=== PATIENT | female | born 1960 | race Caucasian/White ===

== ENCOUNTER 2022-08-27 06:32 | Observation (INO) ==
--- NOTE | 2022-08-12 11:30 | PAT Medication Instructions ---
Medication Instructions Date of Service August 12, 2022 Home Medications Simple Saline 1 dose NA DAILY calcium 600 mg capsule 600 mg PO BID cholecalciferol (vitamin D3) 100 mcg (4,000 unit) capsule 4,000 unit PO QAM elderberry fruit 200 mg capsule 200 mg PO HS zinc 50 mg tablet 50 mg PO HS Saline Ointment 1 dose NA BID PRN dry nares acetaminophen 500 mg tablet 500 mg PO QID PRN Pain ascorbic acid (vitamin C) 500 mg tablet (Vitamin C) 500 mg PO HS atorvastatin 20 mg tablet 20 mg PO QAM cranberry 400 mg capsule 400 mg PO QAM dextromethorphan-guaifenesin 30 mg-600 mg tablet extended hr (Mucinex DM) 1 tab PO Q12H PRN Cough fluticasone 250 mcg-salmeterol 50 mcg/dose blistr powdr for inhalation (Advair Diskus) 1 inh inhalation BID fluticasone propionate 50 mcg/actuation nasal spray,suspension 2 spray intranasal QAM PRN Allergy Symptoms meloxicam 15 mg tablet 15 mg PO HS PRN Pain peg 400-propylene glycol (PF) 0.4 %-0.3 % eye drops in a dropperette (Systane (PF)) 1 drp ophthalmic (eye) BID PRN Dry Eye(S) thyroid (pork) 60 mg tablet (CISO Thyroid) 60 mg PO QAM Continue as directed Simple Saline 1 dose NA DAILY ASK your surgeon for instructions meloxicam 15 mg tablet 15 mg PO HS PRN Pain STOP taking 2 weeks before surgery elderberry fruit 200 mg capsule 200 mg PO HS cranberry 400 mg capsule 400 mg PO QAM DO NOT take the morning of surgery calcium 600 mg capsule 600 mg PO BID cholecalciferol (vitamin D3) 100 mcg (4,000 unit) capsule 4,000 unit PO QAM dextromethorphan-guaifenesin 30 mg-600 mg tablet extended [id number] hr (Mucinex DM) 1 tab PO Q12H PRN Cough (if needed) Take morning of surgery With a small sip of water, OTHERWISE NOTHING TO EAT OR DRINK AFTER MIDNIGHT: Saline Ointment 1 dose NA BID PRN dry nares (if needed) acetaminophen 500 mg tablet 500 mg PO QID PRN Pain (if needed) atorvastatin 20 mg tablet 20 mg PO QAM fluticasone 250 mcg-salmeterol 50 mcg/dose blistr powdr for inhalation (Advair Diskus) 1 inh inhalation BID fluticasone propionate 50 mcg/actuation nasal spray,suspension 2 spray intranasal QAM PRN Allergy Symptoms (if needed) peg 400-propylene glycol (PF) 0.4 %-0.3 % eye drops in a dropperette (Systane (PF)) 1 drp ophthalmic (eye) BID PRN Dry Eye(S) (if needed) thyroid (pork) 60 mg tablet (CISO Thyroid) 60 mg PO QAM Take evening before surgery calcium 600 mg capsule 600 mg PO BID zinc 50 mg tablet 50 mg PO HS Saline Ointment 1 dose NA BID PRN dry nares (if needed) acetaminophen 500 mg tablet 500 mg PO QID PRN Pain (if needed) ascorbic acid (vitamin C) 500 mg tablet (Vitamin C) 500 mg PO HS dextromethorphan-guaifenesin 30 mg-600 mg tablet extended [id number] hr (Mucinex DM) 1 tab PO Q12H PRN Cough (if needed) fluticasone 250 mcg-salmeterol 50 mcg/dose blistr powdr for inhalation (Advair Diskus) 1 inh inhalation BID peg 400-propylene glycol (PF) 0.4 %-0.3 % eye drops in a dropperette (Systane (PF)) 1 drp ophthalmic (eye) BID PRN Dry Eye(S) (if needed) Other Notes If you have any questions please call us at [phone] or [phone] or [phone] or [phone]
--- NOTE | 2022-08-16 15:53 | Anesthesiology Consultation ---
Date of Service August 16, 2022 Assessment & Plan (1) Encounter for pre-operative examination: - pt reports upcoming PCP pre-op evaluation 08/19/22, Dr. Paulson. - neuraxial anesthesia concerns: pt reports significant RLE discomfort following neuraxial anesthesia for during administration, resolved shortly after. - Outpatient joint assessment: Patient is currently scheduled for inpatient pathway. If re-evaluated pending system levels during current pandemic/surgeon requests outpatient pathway, patient is not acceptable candidate for outpatient joint program from anesthesia standpoint pending surgeon's office assessment of pt motivation/support/completion of same day joint program preop requirements. Chart Review Chart Review: Pending: Refer to Additional Notes / Consult section and Patient seen in Pre Admission Testing Teaching & Discussion Pre-Anesthesia Teaching/Discussion Notes: Instructed NPO after midnight before surgery, except medications with 15 cc of water. Medication instructions provided according to the PAT guidelines. History Surgery Operation Date: 08/27/22 07:00 Proposed Procedures p Left Total Knee Arthroplasty - Júnior Brenna Acharya MD Height/Weight Height: 5 ft 8 in Weight: 89.7 kg Allergies Allergy/AdvReac Type Severity Reaction Status Date / Time Iodinated Contrast Media Allergy Intermediate itching Verified 08/09/22 07:42 Sulfa (Sulfonamide Allergy Intermediate itching Verified 08/09/22 07:42 Antibiotics) Medications Home Medications Medication Instructions Recorded Confirmed Last Taken Simple Saline 1 dose NA DAILY 08/08/22 08/09/22 Unknown calcium 600 mg capsule 600 mg PO BID 08/08/22 08/09/22 Unknown cholecalciferol (vitamin D3) 100 4,000 unit PO QAM 08/08/22 08/09/22 Unknown mcg (4,000 unit) capsule elderberry fruit 200 mg capsule 200 mg PO HS 08/08/22 08/09/22 Unknown zinc 50 mg tablet 50 mg PO HS 08/08/22 08/09/22 Unknown Saline Ointment 1 dose NA BID PRN dry nares 08/09/22 08/09/22 Unknown acetaminophen 500 mg tablet 500 mg PO QID PRN Pain 08/09/22 08/09/22 Unknown ascorbic acid (vitamin C) 500 mg 500 mg PO HS 08/09/22 08/09/22 Unknown tablet (Vitamin C) atorvastatin 20 mg tablet 20 mg PO QAM 08/09/22 08/09/22 Unknown cranberry 400 mg capsule 400 mg PO QAM 08/09/22 08/09/22 Unknown dextromethorphan-guaifenesin 30 1 tab PO Q12H PRN Cough 08/09/22 08/09/22 Unknown mg-600 mg tablet extended [id number] hr (Mucinex DM) fluticasone 250 mcg-salmeterol 50 1 inh inhalation BID 08/09/22 08/09/22 Unknown mcg/dose blistr powdr for inhalation (Advair Diskus) fluticasone propionate 50 2 spray intranasal QAM PRN Allergy 08/09/22 08/09/22 Unknown mcg/actuation nasal Symptoms spray,suspension meloxicam 15 mg tablet 15 mg PO HS PRN Pain 08/09/22 08/09/22 Unknown peg 400-propylene glycol (PF) 0.4 1 drp ophthalmic (eye) BID PRN Dry 08/09/22 08/09/22 Unknown %-0.3 % eye drops in a dropperette Eye(S) (Systane (PF)) thyroid (pork) 60 mg tablet (OVERHEAD CRANE TECHNICIAN 60 mg PO QAM 08/09/22 08/09/22 Unknown Thyroid) Past Medical History Medical History Chronic sinusitis stable per pt GERD (gastroesophageal reflux disease) infrequent, controlled, stable per pt History of anxiety Hx of migraines Hypothyroidism Mitral valve prolapse no cards Seasonal allergies Patient denies h/o stroke, seizures, heart attack, heart failure, DM, HTN, blood clots or blood transfusions. Exercise / Class Metabolic Activity III < 4 Walking/Shop/Light housework (occasional SOB with usual activities on flat surfaces, ongoing x several yrs, slight increase over the past year; denies chest discomfort) Past Family History Family History Other No family history of adverse response to anesthesia Past Surgical History Surgical History H/O knee surgery left "loose body" removed History of bilateral tubal ligation History of section x 1 History of colonoscopy History of esophagogastroduodenoscopy (EGD) History of tonsillectomy and adenoidectomy History of tooth extraction Past Anesthesia History No Hx of Anesthesia Complications and No Family Hx of Anesthesia Complications History of PONV No Hx of PONV and Hx of Motion Sickness Social History Smoking Status: Former smoker tobacco type: cigarettes Do You Dip or Chew Tobacco: No Smoking End Date: at 38 Hx Alcohol Use: Yes alcohol intake frequency: holidays/special occasions only Hx Substance Use: No substance use type: does not use Review of Systems Snoring, denies witnessed apneas. Patient denies chest pain, fever, chills, cough, wheezing, or palpitations. Physical Exam Vital Signs Vitals BP 141/89 P 68 TEMP 97.5 SP02 99% on RA RESP 17 Physical Full cervical extension range of motion without pain TMD 3.5 finger breadths Mallampati Score 3 Dentition: several crowns and one missing tooth; denies chipped or loose teeth, caps, implants or bridges Lungs: normal respiratory effort. Good air movement, clear throughout to auscultation, no adventitious breath sounds Cardiac: regular rate and rhythm, no murmurs noted Carotid arteries: negative bruit bilat Lab Results Anesthesia Preop Results Results Anesthesia Widget: WBC 6.72 K/ul (4.8-10.8) 08/16/22 Hgb 13.0 g/dl (12.0-16.0) 08/16/22 Hct 38.8 % (37.0-47.0) 08/16/22 Plt 244 K/uL (130-400) 08/16/22 Na 139 mmol/L (136-145) 08/16/22 K 4.7 mmol/L (3.5-5.1) 08/16/22 Cl 107 mmol/L (98-107) 08/16/22 CO2 28 mmol/L (21-32) 08/16/22 BUN 14 mg/dl (6-23) 08/16/22 Creat 0.69 mg/dl (0.6-1.2) 08/16/22 Glucose Level 88 mg/dl (70-99(Fasting)) 08/16/22 PT 10.5 Seconds (9.0-12.0) 08/16/22 PTT 26.4 Seconds (21.0-31.0) 08/16/22 INR 1.0 (0.9-1.1) 08/16/22 Urine Color Yellow 08/16/22 Urine Appearance Clear (Clear) 08/16/22 Urine pH 7.5 (4.5-7.5) 08/16/22 Urine Specific [place] 1.015 (1.000-1.030) 08/16/22 Urine Protein Negative (Negative) 08/16/22 Urine Glucose (UA) Negative (Negative) 08/16/22 Urine Ketones Negative (Negative) 08/16/22 Urine Blood Negative (Negative) 08/16/22 Urine Nitrite Negative (Negative) 08/16/22 Urine Bilirubin Negative (Negative) 08/16/22 Urine Urobilinogen Negative (Negative) 08/16/22 Urine Leukocyte Esterase Negative (Negative) 08/16/22 Blood Type B Positive 08/16/22 Antibody Screen NEGATIVE 08/16/22 Testing Electrocardiogram Date: 08/16/22 NSR, rate 66 bpm Left axis deviation Prolonged QT COVID-19 Risk Screen Screening Information COVID-19 Screen Date: 08/16/22 Exposure 21 Days Family/Household +COVID Last 21 Days: No Exposure 10 Days Any COVID Exposure Last 10 Days: No Symptoms Last 10 Days Experienced COVID Sx Last 10 Days: No + COVID 0-90 Days COVID + in Last 0-90 Days: No
--- NOTE | 2022-08-19 11:36 | History & Physical Report ---
Date of Service August 19, 2022 Assessment & Plan (1) Osteoarthritis of left knee: Plan: PRE-OP Diagnosis: Left knee osteoarthritis Planned Procedure: Left total knee arthroplasty Plan: Patient is scheduled to undergo this procedure at the [facility] with Dr. Acharya on August 27, 2022. Risks and complications of the procedure such as: Infection, bleeding, pain, scarring, nerve blood vessel damage, weakness, wound problems, stiffness, incomplete relief of symptoms, hardware failure, hardware loosening, wear, fracture, tendon or ligament injury, blood clots, embolism, cardiac, stroke and were explained to the patient at her visit Dr. Acharya on July 02 and informed consent for the procedure was obtained. Patient also understands risks of proceeding with surgical intervention during the COVID-19 pandemic. Currently she is asymptomatic and states that she has not been in contact with anyone positive for the virus recently. We will need to obtain preoperative medical clearance from the patient's primary care provider Dr. Gonzalez. She has an appointment scheduled for August 19 at [facility] in the afternoon. Patient is scheduled to meet with anesthesia at the hospital later this afternoon. While there she will obtain a CBC with differential, complete metabolic panel, PT/INR, PTT, blood type and screen, urinalysis, urine culture and sensitivity, EKG. During today's visit we reviewed the total knee packet. I provided the patient with paperwork to obtain obtaining a handicap placard for her vehicle. I provided her with information about lectures offered by [facility] in regards to joint replacement surgery. I provided her with an order to obtain a walker. I recommended that she purchase a shower chair and raised toilet seat. We discussed discharge planning from the hospital. Patient states she will most likely do in-home physical therapy for the first 2 weeks before transitioning to outpatient physical therapy. I advised the patient that she will be provided with a prescription for narcotic pain medication for postoperative pain control. We will have her on aspirin twice daily for the first 30 days postoperatively for blood clot prevention. Patient verbalized understanding of all information provided during today's visit. She thanks for the care that she received. If she has questions or concerns prior to her surgery, she will contact clinic. Patient be scheduled for 2-week postoperative follow-up visit with Areli Patel on September 11. This chart was completed utilizing [employer] voice recognition software. Grammatical errors, random word insertions, pronoun errors, and in complete sentences are an occasional consequence of the system. Any questions or concerns about the content, text, or information contained within the body of this dictation should be addressed directly to the physician for clarification. History of Present Illness Chief Complaint: Chief Complaint: Left knee pain Primary Care Provider: Emi Gonzalez MD History of Present Illness (including history relevant to procedure): This 62-year-old female presents to clinic today for her preoperative history and physical. Patient states that her knee pain first began in 1989 when she sustained a twisting injury to her left knee. She noted an exacerbation of her pain in 2016 and underwent an arthroscopy and loose body removal. In 2020 she fell down some steps at home noted increase in her left knee pain. She tried conservative measures including formal physical therapy with mild relief. She states the pain is located primarily in the posterior aspect of her knee. She states that going up and down stairs does not make her pain any worse. Denies any numbness or tingling to her left lower extremity. She had undergone ultrasound November 06, 2021, but the cyst was too small to be aspirated and injected. She has some days that are better than others and today is a good day. She has been going to PT. She is not sure that the cortisone injection given last visit was too helpful. She has not had good results from PABLO injections in the past. She rates her pain a 2/10. She is also starting to note some discomfort in her right knee. Review Of Systems: A 12 point review of systems is performed and is unremarkable except for those things stated in the HPI and past medical history. Past Medical History: Problems: Left knee pain Hypercholesterolemia Asthma Chronic cough Anxiety Hypothyroidism GERD Hiatal hernia Obesity Procedure History Procedure Procedure Date Comments section Cecil tooth - impacted Tonsils and adenoids History of knee surgery Tubal ligation Dental surgery - left Allergies and Sensitivities: contrast media (iodine-based)(itch) sulfa drugs(Itch) Current Home Meds: (Last Updated 08/16 14:43) ascorbic acid/chondroitin/glucosa/cuauhtemoc (Glucosamine Chondroitin) atorvastatin (atorvastatin 20 mg oral tablet) 20 mg PO Daily calcium carbonate (calcium (as carbonate) 600 mg oral tablet) cholecalciferol (Vitamin D3) PO Daily chondroitin/glucosamine/methylsulfonylmethane (Glucosamine Chondroitin Advanced) cranberry PO elderberry gummy fluticasone nasal (fluticasone 50 mcg/inh nasal spray) 1 spray each nostril bid fluticasone-salmeterol (fluticasone-salmeterol Diskus 250 mcg-50 mcg) 1 puff inhaled bid meclizine PO Daily at night meloxicam (meloxicam 15 mg oral tablet) 15 mg PO Daily knee pain sertraline 25 mg PO Daily thyroid desiccated ([place] Thyroid) 60 mg PO Daily unknown medication inhaler bid zinc sulfate (Zinc) PO Daily Initial Wt: 08/16 92.0 kg 202 lb Allergies Allergy/AdvReac Type Severity Reaction Status Date / Time Iodinated Contrast Media Allergy Intermediate itching Verified 08/09/22 07:42 Sulfa (Sulfonamide Allergy Intermediate itching Verified 08/09/22 07:42 Antibiotics) Home Medications Medication Instructions Recorded Confirmed Type Simple Saline 1 dose NA DAILY 08/08/22 08/09/22 History calcium 600 mg capsule 600 mg PO BID 08/08/22 08/09/22 History cholecalciferol (vitamin D3) 100 4,000 unit PO QAM 08/08/22 08/09/22 History mcg (4,000 unit) capsule elderberry fruit 200 mg capsule 200 mg PO HS 08/08/22 08/09/22 History zinc 50 mg tablet 50 mg PO HS 08/08/22 08/09/22 History Saline Ointment 1 dose NA BID PRN dry nares 08/09/22 08/09/22 History acetaminophen 500 mg tablet 500 mg PO QID PRN Pain 08/09/22 08/09/22 History ascorbic acid (vitamin C) 500 mg 500 mg PO HS 08/09/22 08/09/22 History tablet (Vitamin C) atorvastatin 20 mg tablet 20 mg PO QAM 08/09/22 08/09/22 History cranberry 400 mg capsule 400 mg PO QAM 08/09/22 08/09/22 History dextromethorphan-guaifenesin 30 1 tab PO Q12H PRN Cough 08/09/22 08/09/22 History mg-600 mg tablet extended [id number] hr (Mucinex DM) fluticasone 250 mcg-salmeterol 50 1 inh inhalation BID 08/09/22 08/09/22 History mcg/dose blistr powdr for inhalation (Advair Diskus) fluticasone propionate 50 2 spray intranasal QAM PRN Allergy 08/09/22 08/09/22 History mcg/actuation nasal Symptoms spray,suspension meloxicam 15 mg tablet 15 mg PO HS PRN Pain 08/09/22 08/09/22 History peg 400-propylene glycol (PF) 0.4 1 drp ophthalmic (eye) BID PRN Dry 08/09/22 08/09/22 History %-0.3 % eye drops in a dropperette Eye(S) (Systane (PF)) thyroid (pork) 60 mg tablet (TRIMMING OPERATOR 60 mg PO QAM 08/09/22 08/09/22 History Thyroid) Past Med/Surg History Medical History Chronic sinusitis stable per pt GERD (gastroesophageal reflux disease) infrequent, controlled, stable per pt History of anxiety Hx of migraines Hypothyroidism Mitral valve prolapse no cards Seasonal allergies Surgical History H/O knee surgery left "loose body" removed History of bilateral tubal ligation History of section x 1 History of colonoscopy History of esophagogastroduodenoscopy (EGD) History of tonsillectomy and adenoidectomy History of tooth extraction Family History Other No family history of adverse response to anesthesia Social History Smoking Status: Former smoker Second Hand Exposure: Yes (in the past); Do You Dip or Chew Tobacco: No; Hx Alcohol Use: Yes Hx Substance Use: No Preferred Language: Setswana Transfer Clerk Required: No Beliefs That Will Affect Care: None Current Living Situation: Alone Feels Safe at Home: Yes Assistive Devices: Contacts and Glasses Review of Systems All systems reviewed & are unremarkable except as noted in Subjective Physical Exam Physical Exam: Physical Exam: (relevant to the procedure, including heart and lung evaluation) General: Alert and oriented x3 with proper grooming and hygiene Eyes: Pupils are equal and reactive to light with accommodation. Extraocular movements are intact Throat: Posterior oropharynx is clear with absence of edema, erythema or exudate. Dentition is appropriate. Cardiac: Regular rate and rhythm no murmurs or gallops appreciated Lungs: Clear to auscultation throughout with no wheezing, rales or rhonchi Abdomen: Obese, nondistended, nontender with NABS Extremities: 2+ DP pulse Sensation to light touch is intact Motor to the gastroc soleus, tibialis anterior, and EHL is 5/5. Able to perform straight leg raise. Valgus alignment + Lateral joint line tenderness. - Britta's Ligamentous examination exhibits: Stable Bean 0 mm anterior translation and firm endpoint Posterior drawer stable Varus valgus stress at 0 and 30 stable Valgus stress at 0 and 30 stable - Effusion Range of motion 0-125 + Tenderness to palpation lateral femoral condyle, Latera patellar facet Palpable Shepard's cyst Neuro: Cranial nerves II through XII are intact with no motor or sensory deficit Skin: Normal in appearance with no open skin areas or discharge Results & Data Diagnostic Findings Studies (relevant to the procedure): RADIOGRAPHY: x-rays showed medial joint space narrowing bilaterally and most significantly patellofemoral compartment. There are marginal osteophytes. 5 degrees valgus alignment on the left.
[~2022-08-27 06:32] MED LIST: ACETAMINOPHEN 500 MG TAB PO SCH; BUPIVACAINE 0.5 % 5 MG/1 ML PF 10ML VIAL ONE; EPINEPHrine INJ 1 MG/ML AMP ONE; FAMOTIDINE 20 MG TAB PO SCH; LR 500ML BOLUS, THEN 15ML/HR IV SCH; LR 60ML/HR IV SCH; ROPIVACAINE 0.5% 5 MG/ML 30 ML VIAL ONE; ROPIVACAINE 0.5% HCL/PF 150 MG, BUPIVACAINE 0.75% MPF 20 ML, EPINEPHrine 0.15 MG, Ketor... INFIL SCH; Scopolamine 1 MG TDSY TD SCH; TRANEXAMIC ACID 1,000 MG **IV Intra-op IV SCH; TRANEXAMIC ACID 1,000 MG **IV Pre-op IV SCH; ceFAZolin 2000MG 2,000 MG/15 ML SYR IV SCH; oxyCODONE HCL 10 MG TABCR (OxyCONTIN) PO SCH
[2022-08-27] MEDS ORDERED: MIDAZOLAM HCL 1 MG/ML 2ML VIAL ONE (08:03)
[2022-08-27] MEDS ORDERED: PROPOFOL IV EMULSION 10 MG/ML 20 ML VIAL IV ONE (08:04)
--- NOTE | 2022-08-27 08:33 | History & Physical Bridge Note ---
Date of Service August 27, 2022 History & Physical Bridge Note I have examined the patient, reviewed the History & Physical and in the interval since the performance of the History & Physical I have noted the following changes of clinical significance: no changes noted Patient is aware of the risks, is asymptomatic, and tested negative for COVID- 19.
[2022-08-27] MEDS ORDERED: fentaNYL citrate PF 100 MCG/2 ML VIAL ONE (08:45)
[2022-08-27] MEDS ORDERED: ORTHO JOINT ANESTHETIC ONE (09:32)
[2022-08-27] MEDS ORDERED: PHENYLEPHRINE HCL 10 MG/ML VIAL ONE (10:00)
[2022-08-27] MEDS ORDERED: HYDROmorphone INJ 2 MG/ML SYR/VIAL ONE (10:06)
--- NOTE | 2022-08-27 11:42 | Post Operative Brief Note ---
Immediate Post Op Note v1 Date of Surgery August 27, 2022 Pre & Post Diagnosis Operation Date: 08/27/22 09:20 Pre-Op Diagnosis: Osteoarthritis of left knee Post-Op Diagnosis: Osteoarthritis of left knee I identified the patient and participated in the time-out.: Yes Procedure Operation Date: 08/27/22 09:20 Actual Procedures p Left Total Knee Arthroplasty(Left) - Júnior Acharya MD Surgeon Júnior Acharya MD Resident Care Aide Gideon Ashby DO & M NOEMI PatelC Estimated Blood Loss 35 Findings Consistent with Post-Op Diagnosis Fluids 1100 cc Specimens Left knee contents Anesthesia Type General Regional Complications none
--- NOTE | 2022-08-27 11:43 | Operative Report ---
Post Operative Report Pre & Post Diagnosis Operation Date: 08/27/22 09:20 Pre-Op Diagnosis: Osteoarthritis of left knee Post-Op Diagnosis: Osteoarthritis of left knee I identified the patient and participated in the time-out.: Yes Procedure Operation Date: 08/27/22 09:20 Actual Procedures p Left Total knee replacement, imageless computer assisted navigation - Júnior Acharya MD Surgeon Júnior Acharya MD Film Mounter Gideon Ashby DO & M BONI Patel Estimated Blood Loss 35 Findings See Below Examined Under Anesthesia: ROM -- There was 5 degrees to 135 degrees of flexion Ligamentous examination -- revealed stable Bean, posterior drawer, varus and valgus stress at 0 and 30 degrees. [place] Grade IV changes of patellofemoral and lateral compartment, grade II-III medial compartment. Fluids 1100 cc Specimens Left knee contents Anesthesia Type General Regional Complications none Indications This is a 62-year-old female who has clinical and radiographic findings consistent with osteoarthritis of the a left knee. I recommended that a left total knee replacement be performed. The patient understands the risks of surgery, which include but not limited to: bleeding, infection, re-operation, damage to nerves and arteries, continued knee pain, knee stiffness, DVT, and . The patient understands all of these instructions and explanations, all of his questions have been satisfactorily addressed and the patient has elected to proceed. Informed consent was signed. Description of Procedure IMPLANTS: 1. Femur: Triathlon #4 Left PS. 2. Tibia: Triathlon #4 [place] with 12 x 50 mm stem. 3. Insert: Triathlon #4 x 9 mm PS X3 poly. 4. Patella: Triathlon A29 x 9 mm X3 poly. 5. Palacos cement. Procedure: The patient was taken to the Operating Room and placed in the supine position after general and adductor canal nerve block was administered. My initials and a multidisciplinary time-out were used to identify the left leg as the correct operative limb. A tourniquet was placed high in the thigh. Prior to the incision, 2 grams of intravenous Ancef were given. The left leg was then prepped and draped in a standard sterile fashion. An Esmarch was used to exsanguinate the leg and the tourniquet was inflated to 250 mmHg. The planned mid-line 20 cm incision was created exposing the extensor mechanism. The medial parapatellar arthrotomy was made and the patella was everted. The patella was addressed first. It was prepared by reaming from 19 mm down to 10 mm. An A29 button was found to fit best. The peg holes were made in the standard fashion. The femur was addressed next and using computer assisted OrthoAlign with 3 degrees of flexion and 0 degrees of valgus, removing 10 mm in the standard fashion for the distal cut. The cut was made and the 4-in-1 cutting block for a size 4 femur was placed. These cuts and the cuts to place the box were made in the standard fashion. Our attention was then drawn to the tibia cut with using imageless computer assisted OrthoAlign, taking 2 mm from the lateral low side. There was sufficient extension and flexion gap to fit a 9 mm spacer. A #4 Tibial baseplate fit well. A trial with a 9 mm spacer showed excellent stability in both flexion and extension, with good ligament balance, and thumbs free patellar tracking. Range of motion of 0-135 degrees. The tibial baseplate was prepped for the keel and stem. A stem was used due to some areas of soft bone, to avoid subsidence. All components were removed. All surfaces were copiously irrigated prior to placement of the components. The femoral component followed by Tibial baseplate were cemented in place and the 9 mm X3 poly was placed. Next, the patellar button was placed using the same cement. 90 ml of total knee cocktail were injected into the soft tissues and periosteum.Once the cement had cured, the range of motion and stability were unchanged.The tourniquet was deflated. Hemostasis was obtained. The extensor mechanism was closed with 1-0 Vicryl and 0 Stratafix with the knee bent approximately 60 degrees in a standard fashion. The peritenon and deep fascia was closed with 2-0 Vicryl. The subcutaneous layer was closed with 3-0 Vicryl. The skin was closed with Zipline and shield. The limb was cleaned and dried. 4x4 dressing was placed over top followed by ABDs, sterile Webril, and a foot to thigh Ghanshyam bandage. The patient was then transferred to the Recovery Room in stable condition. The sponge and needle counts were correct. POST-OP INSTRUCTIONS: The patient will be WBAT. The patient will be admitted to the hospital. Labs will be obtained during the stay. DVT prophylaxis will included aspirin for 6 weeks, TEDs, and mechanical foot pumps. The dressing will be changed prior to their discharge or postop day #2 and covered with a Silverlon dressing, whichever comes first as long as the incision as dry. I attest to the content of the Intraoperative Record and any orders documented therein. Any exceptions are noted below.
[2022-08-27] MEDS ORDERED: DEXAMETHASONE SOD INJ 4 MG/ML VIAL ONE (12:09)
[2022-08-27] MEDS ORDERED: ONDANSETRON INJ 2 MG/ML 2 ML VIAL ONE (12:09)
--- NOTE | 2022-08-27 12:15 | Operative Report ---
Post Operative Report Pre & Post Diagnosis Operation Date: 08/27/22 09:20 Pre-Op Diagnosis: Osteoarthritis of left knee Post-Op Diagnosis: Osteoarthritis of left knee I identified the patient and participated in the time-out.: Yes Procedure Operation Date: 08/27/22 09:20 Actual Procedures p Left Total Knee Arthroplasty(Left) - Júnior Acharya MD Surgeon Dr Júnior Acharya Senior Games Technician Gideon Ashby DO & M RIMA Patel-C Estimated Blood Loss 35 Findings Consistent with Post-Op Diagnosis Specimens none Description of Procedure Pt was taken to operating room, given spinal anesthesia with sedation. Pt was given 2g Ancef IV. Prepped and draped in sterile fashion. I was present during the entire case and assisted with positioning, instrumentation, closure and dressings. Please see Dr. Acharya's op report for further detail. Pt was awake and transferred to PACU in stable condition I attest to the content of the Intraoperative Record and any orders documented therein. Any exceptions are noted below.
[2022-08-27] MEDS ORDERED: PROMETHAZINE HCL 12.5 MG in SODIUM CHLORIDE 0.9% 50 ML IV PRN (12:29)
[2022-08-27] MEDS ORDERED: FLUMAZENIL 0.1 MG/1 ML 10 ML VIAL IV PRN (12:29)
[2022-08-27] MEDS ORDERED: ONDANSETRON INJ 2 MG/ML 2 ML VIAL IV PRN ×2 (12:29→13:45)
[2022-08-27] MEDS ORDERED: ATROPINE SULFATE 0.1 MG/ML 10ML SYR IV PRN (12:29)
[2022-08-27] MEDS ORDERED: NALOXONE HCL 0.4 MG/1 ML VIAL/CARP IV PRN ×2 (12:29→13:45)
[2022-08-27] MEDS ORDERED: ePHEDrine sulfate 50 MG/ML AMP IV PRN (12:29)
[2022-08-27] MEDS ORDERED: LABETALOL HCL IV 5 MG/ML 20ML IV PRN (12:29)
[2022-08-27] MEDS ORDERED: HYDROmorphone INJ 1 MG/ML SYRINGE ONE (12:33)
[2022-08-27] MEDS: HYDROmorphone INJ 1 MG/ML SYRINGE IV PRN ×4 (12:35→12:50)
--- NOTE | 2022-08-27 12:39 | XRay Report ---
TWO VIEWS LEFT KNEE CLINICAL HISTORY: Postoperative examination. FINDINGS: AP and crosstable lateral portable views of the left knee are compared to study dated 2021. A left knee arthroplasty is in near anatomic alignment. There has been undersurface remodeling of the patella. No acute fracture is seen. Soft tissue edema and subcutaneous gas around the knee are expected postoperative changes. 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 IMPRESSION: 1. Expected postoperative findings status post left knee arthroplasty. No acute fracture is seen. 2. 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 ACT 112: Negative or not required by law. Electronically signed by: Kalyan Alves M.D. 08/27/2022 12:38 PM
--- NOTE | 2022-08-27 13:20 | Anesthesiology Progress Note ---
Date of Service August 27, 2022 Anesthesia Post Procedure Vital Signs Vital Signs: Temp Pulse Pulse Resp BP Pulse Ox O2 Del Method 08/27/22 13:15 36.4 C L 68 13 132/77 99 Nasal Cannula 08/27/22 13:05 78 13 123/94 99 Nasal Cannula 08/27/22 12:55 70 12 142/91 H 94 Nasal Cannula 08/27/22 12:45 88 13 154/88 H 95 Nasal Cannula 08/27/22 12:35 85 12 170/98 H 97 Room Air 08/27/22 12:25 85 12 166/96 H 97 Room Air 08/27/22 12:15 95 H 16 160/98 H 96 Oxymask 08/27/22 12:05 71 16 166/93 H 97 Oxymask 08/27/22 12:03 36.4 C L 77 16 164/98 H 98 Oxymask 08/27/22 07:23 36.9 C 73 18 139/88 98 Room Air O2 Flow Rate 08/27/22 13:15 3 08/27/22 13:05 2 08/27/22 12:55 2 08/27/22 12:45 2 08/27/22 12:35 08/27/22 12:25 08/27/22 12:15 6 08/27/22 12:05 11 08/27/22 12:03 11 08/27/22 07:23 Pain Intensity Left Knee: Pain Intensity: 4 Transfer of Care Handoff Completed per policy Notes Mental Status: alert / awake / arousable Patient Amnestic to Procedure: Yes Nausea / Vomiting: adequately controlled Pain: adequately controlled Airway Patency, RR, SpO2: stable & adequate BP & HR: stable & adequate Hydration State: stable & adequate Anesthetic Complications: no major complications apparent
[2022-08-27] MEDS ORDERED: bisacodyL 10 MG SUPP PR PRN (13:45)
[2022-08-27] MEDS ORDERED: METOCLOPRAMIDE HCL INJ 5 MG/ML 2 ML VIAL IV PRN (13:45)
[2022-08-27] MEDS ORDERED: MAGNESIUM HYDROXIDE SUSP 30 ML UDC PO PRN (13:45)
[2022-08-27] MEDS ORDERED: HYDROmorphone INJ 0.5 MG/0.5 ML SYR IV PRN (13:45)
[2022-08-27] MEDS: ACETAMINOPHEN 500 MG TAB PO SCH ×2 (14:03→21:37)
[2022-08-27] MEDS: oxyCODONE HCL IR 5 MG TAB (IMMEDIATE RELEASE) PO PRN ×2 (14:04→22:55)
[2022-08-27] MEDS: SODIUM CHLORIDE 0.9% 1000ML 1,000 ML IV SCH (14:04)
[2022-08-27] MEDS: Scopolamine CHECK PATCH PLACEMENT SCH (15:13)
--- NOTE | 2022-08-27 16:16 | Orthopedic Progress Note ---
Date of Service August 27, 2022 Assessment & Plan (1) Osteoarthritis of left knee: Plan: POD #0 s/p Left TKA, doing as well as expected. Resume diet. WBAT with walker. OOB to chair. Continue pain control. Check labs tomorrow. DVT prophylaxis: TEDs 3 weeks, foot pumps while in hospital, ASA 81 mg BID for 6 weeks. PT/OT. D/C planning. Present on Admission?: Yes Admission and Anticipated Discharge Date Admission Date: August 27, 2022 Subjective Doing ok. Physical Exam Physical Exam: LLE: BCR < 2 sec. Sensation to light touch intact distally. Wiggling ankle and all toes. Calf soft and non-tender. Dressing is clean, dry, intact. Able to preform straight leg raise. Results & Data Vital Signs (Past 12 Hours) Vital Signs Temp Pulse Pulse Resp BP Pulse Ox O2 Del Method 08/27/22 15:40 36.7 C 83 16 112/73 94 Nasal Cannula 08/27/22 14:10 Nasal Cannula 08/27/22 14:10 36.3 C L 86 16 150/98 H 97 Nasal Cannula 08/27/22 14:40 36.5 C 67 16 129/80 Nasal Cannula 08/27/22 13:25 66 12 134/84 96 Nasal Cannula 08/27/22 13:15 36.4 C L 68 13 132/77 99 Nasal Cannula 08/27/22 13:05 78 13 123/94 99 Nasal Cannula 08/27/22 12:55 70 12 142/91 H 94 Nasal Cannula 08/27/22 12:45 88 13 154/88 H 95 Nasal Cannula 08/27/22 12:35 85 12 170/98 H 97 Room Air 08/27/22 12:25 85 12 166/96 H 97 Room Air 08/27/22 12:15 95 H 16 160/98 H 96 Oxymask 08/27/22 12:05 71 16 166/93 H 97 Oxymask 08/27/22 12:03 36.4 C L 77 16 164/98 H 98 Oxymask 08/27/22 07:23 36.9 C 73 18 139/88 98 Room Air O2 Flow Rate 08/27/22 15:40 1 08/27/22 14:10 2 08/27/22 14:10 2 08/27/22 14:40 2 08/27/22 13:25 3 06/20/23 13:15 3 08/27/22 13:05 2 08/27/22 12:55 2 08/27/22 12:45 2 08/27/22 12:35 08/27/22 12:25 08/27/22 12:15 6 08/27/22 12:05 11 08/27/22 12:03 11 08/27/22 07:23 Diagnostic Findings Laboratory Results SARS-CoV-2, RNA, NAAT NEGATIVE (NEGATIVE) 08/27/22 06:53 Impressions Knee X-Ray 08/27/22 12:14 TWO VIEWS LEFT KNEE CLINICAL HISTORY: Postoperative examination. FINDINGS: AP and crosstable lateral portable views of the left knee are compared to study dated 11/01/2021. A left knee arthroplasty is in near anatomic alignment. There has been undersurface remodeling of the patella. No acute fracture is seen. Soft tissue edema and subcutaneous gas around the knee are expected postoperative changes. 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 IMPRESSION: 1. Expected postoperative findings status post left knee arthroplasty. No acute fracture is seen. 2. 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 ACT 112: Negative or not required by law. Electronically signed by: Kalyan Alves M.D. 08/27/2022 12:38 PM
[2022-08-27] MEDS: FERROUS GLUCONATE 324 MG TAB PO SCH (16:37)
[2022-08-27] MEDS: ASCORBIC ACID 500 MG TAB PO SCH (16:37)
[2022-08-27] MEDS: ceFAZolin 2000MG 2,000 MG/15 ML SYR IV SCH (17:33)
[2022-08-27] MEDS ORDERED: SENNA 8.6 MG TAB PO SCH (21:00)
[2022-08-27] MEDS: DOCUSATE SODIUM 100 MG CAP PO SCH (21:37)
[2022-08-28] MEDS: SODIUM CHLORIDE 0.9% 1000ML 1,000 ML IV SCH (00:24)
[2022-08-28] MEDS: Scopolamine CHECK PATCH PLACEMENT SCH ×2 (00:24→08:47)
[2022-08-28] MEDS: ceFAZolin 2000MG 2,000 MG/15 ML SYR IV SCH (02:17)
[2022-08-28] MEDS: oxyCODONE HCL IR 5 MG TAB (IMMEDIATE RELEASE) PO PRN ×2 (04:22→08:44)
[2022-08-28] MEDS: ACETAMINOPHEN 500 MG TAB PO SCH ×2 (05:59→13:10)
[2022-08-28 06:34] LABS: Hematocrit (blood only) 33.9 % (37.0-47.0); Hemoglobin 11.4 g/dl (12.0-16.0); Mean Corpuscular Hemoglobin 31.1 pg (25.0-34.0); Mean Corpuscular Hgb Conc 33.6 g/dL (32.0-36.0); Mean Corpuscular Volume 92.6 fL (80.0-100.0); Mean Platelet Volume 9.6 fL (9.4-12.4); Platelet Count 228 K/uL (130-400); RDW Coefficient of Variation 13.1 % (11.5-14.5); Red Blood Count 3.66 M/uL (4.20-5.40); White Blood Count 13.78 K/ul (4.8-10.8)
[2022-08-28 07:07] LABS: BUN Creatinine Ratio 18.1 (10-20); Calcium 9.1 mg/dl (8.6-10.3); Creatinine Clr Calc Pharmacy 90.2 ml/min; Est GFR (African American) 102.6 ml/min; Est GFR (Non-African American) 88.5 ml/min; Potassium 4.4 mmol/L (3.5-5.1)
[2022-08-28] MEDS: FERROUS GLUCONATE 324 MG TAB PO SCH (08:43)
[2022-08-28] MEDS: DOCUSATE SODIUM 100 MG CAP PO SCH (08:43)
[2022-08-28] MEDS: ASCORBIC ACID 500 MG TAB PO SCH (08:43)
[2022-08-28] MEDS ORDERED: ARMOUR THYROID 30 MG TAB PO SCH (09:00)
[2022-08-28] MEDS ORDERED: ATORVASTATIN 20 MG TAB PO SCH (09:00)
[2022-08-28] MEDS ORDERED: ASPIRIN 81 MG ECTAB PO SCH (09:00)
[2022-08-28] MEDS ORDERED: MULTIVITAMIN TAB PO SCH (09:00)
--- NOTE | 2022-08-28 09:16 | Orthopedic Progress Note ---
Date of Service August 28, 2022 Assessment & Plan (1) Osteoarthritis of left knee: Plan: POD #1 s/p Left TKA, doing as well as expected. Continue diet. WBAT with walker. OOB to chair. Continue pain control with oxycodone and Tylenol. H/H stable -on iron and vitamin C. DVT prophylaxis: TEDs 3 weeks, foot pumps while in hospital, ASA 81 mg BID for 6 weeks. Continue PT/OT. D/C planning. Plans for discharge to her home with and home health. We will discharge her today if safe and PT. Admission and Anticipated Discharge Date Admission Date: August 27, 2022 Subjective Patient is sitting up in her chair. Doing well. No issues with nausea or vomiting. She has been out of bed with physical therapy and is currently dressed. She does feel ready to go home. Her daughter is going to be with her. Pain is 8 out of 10 although controlled with oxycodone. Physical Exam Musculoskeletal: Incision is clean, dry and intact. Scant bloody drainage on the postoperative dressings. The incision was cleansed with sterile saline. Zip line is in place. No significant effusion of her left knee. No edema of her left lower extremity. Distal pulses are 1+. Sensation is normal. Strength of her left ankle with plantarflexion, dorsiflexion, inversion and eversion is 5/5. She is able to independently straight leg raise. No significant ecchymosis. No fracture blisters. Results & Data Vital Signs (Past 12 Hours) Vital Signs Temp Pulse Resp BP Pulse Ox O2 Del Method 08/28/22 07:20 Room Air 08/28/22 06:09 36.6 C 78 18 113/70 95 Room Air 08/28/22 04:00 36.5 C 79 16 123/74 96 Room Air 08/27/22 23:51 37.0 C 94 H 18 120/72 96 Room Air Laboratory Results 08/28/22 08/28/22 Range/Units 06:01 06:01 WBC 13.78 H (4.8-10.8) K/ul RBC 3.66 L (4.20-5.40) M/uL Hgb 11.4 L (12.0-16.0) g/dl Hct 33.9 L (37.0-47.0) % MCV 92.6 (80.0-100.0) fL MCH 31.1 (25.0-34.0) pg MCHC 33.6 (32.0-36.0) g/dL RDW Std Deviation 45.0 (36.4-46.3) fL RDW Coeff of Karyna 13.1 (11.5-14.5) % Plt Count 228 (130-400) K/uL MPV 9.6 (9.4-12.4) fL Sodium 136 (136-145) mmol/L Potassium 4.4 (3.5-5.1) mmol/L Chloride 106 (98-107) mmol/L Carbon Dioxide 24 (21-32) mmol/L Anion Gap 6 (3-11) BUN 13 (6-23) mg/dl Creatinine 0.72 (0.6-1.2) mg/dl Est Cr Clr Drug Dosing 90.2 ml/min Est GFR ( Amer) 102.6 ml/min Est GFR (Non-Af Amer) 88.5 ml/min BUN/Creatinine Ratio 18.1 (10-20) Glucose 112 H (70-99(Fasting)) mg/dl Calcium 9.1 (8.6-10.3) mg/dl Diagnostic Findings TWO VIEWS LEFT KNEE CLINICAL HISTORY: Postoperative examination. FINDINGS: AP and crosstable lateral portable views of the left knee are compared to study dated 11/01/2021. A left knee arthroplasty is in near anatomic alignment. There has been undersurface remodeling of the patella. No acute fracture is seen. Soft tissue edema and subcutaneous gas around the knee are expected postoperative changes. 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 IMPRESSION: 1. Expected postoperative findings status post left knee arthroplasty. No acute fracture is seen. 2. 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
--- NOTE | 2022-08-28 09:44 | Discharge Summary ---
Date of Service August 28, 2022 Admission HPI Per Admitting Provider History of Present Illness (including history relevant to procedure): This 62-year-old female presents to clinic today for her preoperative history and physical. Patient states that her knee pain first began in 1989 when she sustained a twisting injury to her left knee. She noted an exacerbation of her pain in 2016 and underwent an arthroscopy and loose body removal. In 2020 she fell down some steps at home noted increase in her left knee pain. She tried conservative measures including formal physical therapy with mild relief. She states the pain is located primarily in the posterior aspect of her knee. She states that going up and down stairs does not make her pain any worse. Denies any numbness or tingling to her left lower extremity. She had undergone ultrasound November 06, 2021, but the cyst was too small to be aspirated and injected. She has some days that are better than others and today is a good day. She has been going to PT. She is not sure that the cortisone injection given last visit was too helpful. She has not had good results from PABLO injections in the past. She rates her pain a 2/10. She is also starting to note some discomfort in her right knee. Review Of Systems: A 12 point review of systems is performed and is unremarkable except for those things stated in the HPI and past medical history. Past Medical History: Problems: Left knee pain Hypercholesterolemia Asthma Chronic cough Anxiety Hypothyroidism GERD Hiatal hernia Obesity Procedure History Procedure Procedure Date Comments section [place] tooth - impacted Tonsils and adenoids History of knee surgery Tubal ligation Dental surgery - left Allergies and Sensitivities: contrast media (iodine-based)(itch) sulfa drugs(Itch) Current Home Meds: (Last Updated 08/16 14:43) ascorbic acid/chondroitin/glucosa/cuauhtemoc (Glucosamine Chondroitin) atorvastatin (atorvastatin 20 mg oral tablet) 20 mg PO Daily calcium carbonate (calcium (as carbonate) 600 mg oral tablet) cholecalciferol (Vitamin D3) PO Daily chondroitin/glucosamine/methylsulfonylmethane (Glucosamine Chondroitin Advanced) cranberry PO elderberry gummy fluticasone nasal (fluticasone 50 mcg/inh nasal spray) 1 spray each nostril bid fluticasone-salmeterol (fluticasone-salmeterol Diskus 250 mcg-50 mcg) 1 puff inhaled bid meclizine PO Daily at night meloxicam (meloxicam 15 mg oral tablet) 15 mg PO Daily knee pain sertraline 25 mg PO Daily thyroid desiccated ([place] Thyroid) 60 mg PO Daily unknown medication inhaler bid zinc sulfate (Zinc) PO Daily Initial Wt: 08/16 92.0 kg 202 lb Discharge Data Consultations 08/22/22 12:35 Consult Hospitalist Routine Procedures Performed Operation Date: 08/27/22 09:20 Actual Procedures p Left Total Knee Arthroplasty(Left) - Júnior Acharya MD Hospital Course (1) Osteoarthritis of left knee: Patient was kept in observation at [facility] after undergoing an elective left total knee arthroplasty by Dr. Acharya on August 27, 2022. Her surgery was performed with spinal anesthetic and a peripheral nerve block. She tolerated the procedure well without any intraoperative complications. She was given 2 g of IV Ancef for surgical prophylaxis which was continued for 24 hours postoperatively. In the recovery room she had x-rays of her left knee which showed a stable left knee arthroplasty. She was allowed out of bed, weight-bear as tolerated with the assistance of a walker. She was given iron and vitamin C to aid in healing. She was given aspirin 81 mg twice daily for DVT prophylaxis which will be continued for 3 weeks postoperatively. ZION stockings were also ordered as well as AV impulse boots. Physical therapy and Occupational Therapy consults were placed. She was seen on postoperative day 1 and was deemed safe for discharge to home. Case management was involved for disposition needs. She plans on returning home with home health and home physical therapy. Postoperative day 1 her dressings were changed and a Silverlon dressing was applied to her left knee. [place] stocking was also applied to her left lower extremity. Her pain was well controlled with oral Tylenol and oxycodone. Her vital signs remained stable. Her postoperative lab work showed a stable H&H and BMP. Due to her doing well out of bed and safe and PT and OT she was discharged to her home in stable condition on August 28, 2022 with her daughter.
[2022-08-28] MEDS ORDERED: KETOROLAC 30 MG/ML VIAL IV PRN (10:26)
--- NOTE | 2022-08-28 13:33 | Hospitalist Progress Note ---
Date of Service August 28, 2022 Assessment & Plan (1) Osteoarthritis of left knee: Plan: s/p L TKA pod#1 - Recommend pain control & DVT ppx (minimum of 14 days) - final drug choice/dose/duration at ortho's discretion - perioperative abx at ortho's discretion - Recommend use of IS q1h wa for atelectasis/pna prevention - Dressing reinforcement - PT/OT -- advises home (2) Dyslipidemia: Plan: Chronic/stable - Continue statin therapy (3) Hypothyroidism: Plan: Chronic/stable - Continue thyroid replacement Plan Can resume all medications upon discharge as prescribed prior to hospi talization. She is stable for d/c from medical team standpoint. No additional recommendations at this time. Thank you for allowing us to participate in the care of your patient. Plan to be d/w Dr. Polanco. Admission and Anticipated Discharge Date Admission Date: August 27, 2022 Diana Grace was seen on rounds this morning. She is post op L TKA by Dr. Acharya for OA and knee pain that failed conservative measures. She underwent surgery on 08/27 without any immediate complications. Hospitalists were consulted for routine post operative med management. She carries a h/o dyslipidemia, OA, and hypothyroidism. She has no h/o PE/DVT. Plans to return home upon d/c. She reports that her knee pain is fairly well controlled with pain meds. No cp or dyspnea. Physical Exam Physical Exam: GENERAL: 62 yo well-developed, well-nourished F. AAOx4. NAD. LUNGS: Clear to auscultation bilaterally w/o W/R/R. CARDIOVASCULAR: Regular rate and rhythm w/o m/g/r ABDOMEN: Soft, non-tender and non-distended. BS normoactive x 4 quad. EXTREMITIES: No edema. Non-tender. Peripheral pulses +2/4. Neg missael's sign on L. Silverlon overlying dressing with some oozing from underneath and inferior to dressing. Results & Data Results & Data Vital Signs (Past 12 Hours) Vital Signs Temp Pulse Resp BP Pulse Ox O2 Del Method 08/28/22 10:42 36.9 C 81 16 137/79 94 Room Air 08/28/22 07:20 Room Air 08/28/22 06:09 36.6 C 78 18 113/70 95 Room Air 08/28/22 04:00 36.5 C 79 16 123/74 96 Room Air Laboratory Results 08/28/22 06:01 08/28/22 06:01 PG Care Time/CCT Total # of Minutes Spent Total Time Spent with Patient: Total time spent is greater than 50% in coordination of care (as documented) at patient's floor/unit and/or counseling patient: Coding Level of Care Code 45281 SUB INP/OBS CARE 2/35MIN Diagnoses Osteoarthritis of left knee M17.12 Dyslipidemia E78.5 Hypothyroidism E03.9
== END 2022-08-28 15:50 | disposition home health service (06) ==
LOC: 3E 06:32 → ASU 06:32